=== PATIENT | female | born 1990 | race Caucasian/White ===

== ENCOUNTER 2017-08-18 08:45 | Inpatient (IN) ==
[2017-08-18 10:07] LABS: Amorphous Crystals,Urine Occasional /HPF (Few); Apearance,Urine CLEAR (Clear); Bacteria,Urine Occasional /HPF (Few); Bilirubin,Urine Negative (Negative); Blood, Urine Negative (Negative); Glucose,Urine (UA) Negative (Negative); Ketones,Urine Negative (Negative); Mucus,Urine Occasional /LPF (Occasional); Nitrite,Urine Negative (Negative); Protein,Urine Negative; RBC,Urine <1 /HPF (0-4); Squamous Epithelial Cell,Urine Occasional /HPF (0-10); Urine Color Yellow (Yellow); Urine Specific Gravity 1.008 (1.001-1.035); Urine Urobilinogen < 2.0 EU/DL (0.2-1.0); WBC,Urine 5 /HPF (0-6)
[2017-08-18] MEDS ORDERED: OXYTOCIN/LR 20 UNIT/1,000 ML BAG IV SCH (11:00)
[2017-08-18] MEDS ORDERED: AMPICILLIN INJ 2,000 MG in SODIUM CHLORIDE 0.9% 100 ML IV SCH (11:00)
[2017-08-18 11:14] LABS: Basophils % 0.2 % (0.0-0.8); Eosinophils # 0.1 10*3/uL (0.0-0.87); Eosinophils % 0.7 % (0.00-10.9); Hematocrit 34.1 VOL% (35.7-47.0); Hemoglobin 11.3 GM/DL (12.0-16.0); Immature Granulocytes % 0.5 %; Immature Granulocytes Absolute 0.05 #; Lymphocytes # 2.1 10*3/uL (1.4-4.0); Lymphocytes % 21.4 % (21.3-54.2); Mean Corpuscular HGB Conc 33.1 GM/DL (32-36); Mean Corpuscular Hemoglobin 30 PG (27-34); Monocytes # 0.8 10*3/uL (0.11-0.8); Monocytes % 8.4 % (1.7-12.7); Neutrophils # 6.6 10*3/uL (1.4-7.4); Neutrophils % 68.8 % (38.7-73.9); Platelet Count 265 T/CUMM (130-400); Red Blood Count 3.79 MC/CUMM (3.8-5.5); Red Cell Distribution Width 14.9 % (9.3-17.3); White Blood Count 9.6 T/CUMM (4-12)
[2017-08-18 11:20] LABS: INR 0.9; PT Patient Result 9.5 SECS; Partial Thromboplastin Time 24.2 SECS (0-40)
[2017-08-18 11:38] LABS: Alanine Aminotransferase 13 U/L (13-56); Albumin 2.5 G/DL (3.4-5.0); Alkaline Phosphatase 138 U/L (45-117); Aspartate Amino Transferase 20 U/L (0-37); Bilirubin,Total < 0.39 MG/DL (0.2-1.0); Blood Urea Nitrogen 6 MG/DL (7-18); Calcium 9.4 MG/DL (8.5-10.1); Glucose 79 MG/DL (74-106); Osmolality,Calculated 273.5 MOS/KG (273-304); Potassium 3.8 MMOL/L (3.5-5.1); Sodium 139 MMOL/L (136-145); Total Protein 6.3 G/DL (6.4-8.3)
[2017-08-18] MEDS: LACTATED RINGERS 1,000 ML IV SCH ×2 (11:39→21:00)
[2017-08-18] MEDS: AMPICILLIN INJ 1,000 MG in SODIUM CHLORIDE 0.9% 100 ML IV SCH ×2 (16:04→20:20)
[2017-08-18] MEDS: ONDANSETRON 4 MG/2 ML VIAL IV PRN (20:28)
[2017-08-18] MEDS: BUTORPHANOL 2 MG/ML VIAL IV PRN (20:29)
[2017-08-19] MEDS: AMPICILLIN INJ 1,000 MG in SODIUM CHLORIDE 0.9% 100 ML IV SCH ×5 (00:05→16:25)
[2017-08-19] MEDS: LACTATED RINGERS 1,000 ML IV SCH ×2 (08:25→19:28)
[2017-08-19] MEDS ORDERED: OXYTOCIN/LR 20 UNIT/1,000 ML BAG IV SCH (09:15)
[2017-08-19] MEDS: BUTORPHANOL 2 MG/ML VIAL IV PRN (09:58)
[2017-08-19] MEDS: ONDANSETRON 4 MG/2 ML VIAL IV PRN (10:14)
[2017-08-19] MEDS ORDERED: LACTATED RINGERS 1,000 ML IV ONE (13:52)
[2017-08-19] MEDS ORDERED: FAMOTIDINE 20 MG/2 ML VIAL IV ONE (13:52)
[2017-08-19] MEDS ORDERED: ePHEDrine 50 MG/ML AMP IV PRN (13:52)
[2017-08-19] MEDS ORDERED: CITRIC ACID/SODIUM CITRATE 30 ML UDCUP PO ONE (13:52)
[2017-08-19] MEDS ORDERED: hydrOXYzine HCL 25 MG/1 ML VIAL IM PRN (13:53)
[2017-08-19] MEDS ORDERED: PROMETHAZINE 25 MG/1 ML VIAL IM ONE (13:53)
[2017-08-19] MEDS ORDERED: diphenhydrAMINE 50 MG/1 ML VIAL IV PRN ×2 (13:53)
[2017-08-19] MEDS ORDERED: fentaNYL 2 MCG/ROPIV 0.2% EPID 150 ML EPIDURAL SCH (14:00)
[2017-08-19 16:35] LABS: Apearance,Urine CLEAR (Clear); Bilirubin,Urine Negative (Negative); Blood, Urine Negative (Negative); Glucose,Urine (UA) Negative (Negative); Ketones,Urine 80 mg/dL (Negative); Mucus,Urine Occasional /LPF (Occasional); Nitrite,Urine Negative (Negative); Protein,Urine Negative; RBC,Urine <1 /HPF (0-4); Urine Color Yellow (Yellow); Urine Specific Gravity 1.011 (1.001-1.035); Urine Urobilinogen < 2.0 EU/DL (0.2-1.0); WBC,Urine 1 /HPF (0-6)
[2017-08-19] MEDS ORDERED: miSOPROStol 200 MCG TABLET ONE (20:59)
[2017-08-19] MEDS ORDERED: METHYLERGONOVINE 0.2 MG/1 ML AMP ONE (20:59)
[2017-08-19] MEDS ORDERED: LIDOCAINE 1% 50 ML VIAL ONE (20:59)
[2017-08-19] MEDS ORDERED: miSOPROStol 200 MCG TABLET RECTAL ONE (23:00)
[2017-08-19] MEDS ORDERED: METHYLERGONOVINE 0.2 MG/1 ML AMP IM ONE (23:05)
[2017-08-19] MEDS ORDERED: OXYTOCIN/LR 20 UNIT/1,000 ML BAG IV ONE ×2 (23:22→23:33)
[2017-08-19] MEDS ORDERED: ONDANSETRON 4 MG/2 ML VIAL IV PRN (23:33)
[2017-08-19] MEDS ORDERED: DIPH/TET/ACEL PERT BOOSTER VACCINE 0.5 ML VIAL IM ONE (23:33)
[2017-08-19] MEDS ORDERED: RHO(D) IMMUNE GLOBULIN 300 MCG SYRINGE IM ONE (23:33)
[2017-08-19] MEDS ORDERED: BISACODYL 10 MG SUPP RECTAL PRN (23:33)
[2017-08-19] MEDS ORDERED: MEASLES/MUMPS/RUBELLA VACCINE 0.5 ML VIAL SUBCUT ONE (23:33)
[2017-08-19] MEDS ORDERED: WITCH HAZEL PADS 100/JAR TOP PRN (23:33)
[2017-08-19] MEDS ORDERED: ACETAMINOPHEN 325 MG TABLET PO PRN (23:33)
[2017-08-19] MEDS ORDERED: HYDROCORTISONE 2.5% RECTAL CREAM 30 GM TUBE TOP PRN (23:33)
[2017-08-19] MEDS ORDERED: LANOLIN 50% CREAM 0.3 OZ TUBE TOP PRN (23:33)
[2017-08-19] MEDS ORDERED: BENZOCAINE 20%/MENTHOL 0.5% SPRAY 56 GM CAN TOP PRN (23:33)
[2017-08-19] MEDS ORDERED: oxyCODONE/ACETAMINOPHEN 5-325 MG TABLET PO PRN (23:33)
[2017-08-20] MEDS: IBUPROFEN 800 MG TABLET PO PRN ×2 (01:35→11:54)
[2017-08-20] MEDS: oxyCODONE/ACETAMINOPHEN 5-325 MG TABLET PO PRN (01:36)
[2017-08-20 06:03] LABS: Basophils % 0.1 % (0.0-0.8); Eosinophils % 0.1 % (0.00-10.9); Hematocrit 28.4 VOL% (35.7-47.0); Hemoglobin 9.7 GM/DL (12.0-16.0); Immature Granulocytes % 0.6 %; Immature Granulocytes Absolute 0.08 #; Lymphocytes # 1.9 10*3/uL (1.4-4.0); Lymphocytes % 13.4 % (21.3-54.2); Mean Corpuscular HGB Conc 34.2 GM/DL (32-36); Mean Corpuscular Hemoglobin 30 PG (27-34); Mean Platelet Volume 10.6 FL (9.6-12.0); Monocytes # 1.6 10*3/uL (0.11-0.8); Monocytes % 11.5 % (1.7-12.7); Neutrophils # 10.5 10*3/uL (1.4-7.4); Neutrophils % 74.3 % (38.7-73.9); Platelet Count 221 T/CUMM (130-400); Red Blood Count 3.19 MC/CUMM (3.8-5.5); Red Cell Distribution Width 15.3 % (9.3-17.3); White Blood Count 14.1 T/CUMM (4-12)
[2017-08-20] MEDS: DOCUSATE SODIUM 100 MG CAPSULE PO SCH ×3 (08:52→21:06)
[2017-08-21] MEDS: DOCUSATE SODIUM 100 MG CAPSULE PO SCH ×2 (08:54→20:22)
[2017-08-21] MEDS: oxyCODONE/ACETAMINOPHEN 5-325 MG TABLET PO PRN ×2 (08:55→18:27)
[2017-08-21] MEDS: IBUPROFEN 800 MG TABLET PO PRN (18:26)
[2017-08-22] MEDS: IBUPROFEN 800 MG TABLET PO PRN (06:06)
[2017-08-22] MEDS: oxyCODONE/ACETAMINOPHEN 5-325 MG TABLET PO PRN (06:06)
[2017-08-22 08:30] VITALS: BP 116/69
[2017-08-22] MEDS: DOCUSATE SODIUM 100 MG CAPSULE PO SCH (09:18)
== END 2017-08-22 14:25 | disposition home or self-care (01) | DRG 775 ==
LOC: EDSTATUS 08:45 → N.LDOUT 08:45 → N.LD 09:37 → N.OB 08-20 11:43
PROVIDERS: ADMIT Obstetrics & Gynecology; ATTEND Obstetrics & Gynecology